=== PATIENT | male | born 1975 | race African-American/Black ===

== ENCOUNTER 2019-08-11 11:18 | Emergency (ER) | payer MEDICAID, SELFPAY ==
[2019-08-11 11:32] VITALS: BP 134/78; PULSE 63; RESP 20; TEMP 37.2; O2SAT 97
--- NOTE | 2019-08-11 11:34 | ED.GENADULT ---
HPI - General Adult General Chief complaint: Upper Respiratory Infection Stated complaint: chills/cough/running nose Time Seen by Provider: 08/11/19 11:34 Source: patient and RN notes reviewed Mode of arrival: ambulatory Limitations: no limitations History of Present Illness HPI narrative: This is a 44 years old male presents to the office for an evaluation of cold symptoms since yesterday. Symptoms include runny nose, sneezing, sore throat, and cold chills. He also reported loose stool, no abdominal pain or vomiting. He did not receive influenza vaccine for the season. He does not smoke. He tried cough drops and NyQuil for his symptoms. Related Data Home Medications Medication Instructions Recorded Confirmed lisinopril 10 mg PO DAILY 08/11/19 08/11/19 Allergies Allergy/AdvReac Type Severity Reaction Status Date / Time No Known Allergies Allergy Verified 08/11/19 11:35 Review of Systems Review of Systems: Narrative: CONSTITUTIONAL: Denies fever. Reports chills/cold ENT: Reports rhinorrhea, congestion, sneezing, sore throat CARDIOVASCULAR: Denies chest pain, palpitation RESPIRATORY: Denies dyspnea, wheezing, cough GASTROINTESTINAL: Denies abdominal pain, nausea, vomiting, diarrhea. GENITOURINARY: Denies urinary symptoms or discharge SKIN: Denies rash MUSCULOSKELETAL: Denies acute back pain NEUROLOGIC: Denies lightheaded PMFSH Comments At time of signature, I agree with nursing past medical, surgical, social and family history. There is no relevant family history pertinent to the presenting complaint. Exam Narrative: Exam Narrative: GENERAL: This is a well-nourished, well-developed patient, in no apparent distress. EYES: Sclera clear/white. Vision is grossly intact. EARS: External ears normal, auditory canals clear and without drainage, TMs normal without perforation. Hearing grossly intact. NOSE: External nose normal with no obvious nasal discharge, nares erythema and edematous THROAT: Mucous membranes moist, posterior pharynx pink with drainage NECK: Neck supple, non-tender without lymphadenopathy, masses or thyromegaly. CARDIOVASCULAR: Regular rate and rhythm without murmurs, gallops, or rubs. RESPIRATORY: Clear to auscultation. Breath sounds equal bilaterally. No wheezes, rales, or rhonchi. GASTROINTESTINAL: Abdomen soft, non-tender, nondistended. Bowel sounds are active. No guarding. SKIN: warm, intact with no suspicious lesions or rash, good texture and turgor. NEURO: awake, alert, and oriented to person, place and time. There were no obvious focal neurologic abnormalities. Steady gait [place] Coma Scale Eye Opening: Spontaneous 4 [place] Coma Scale Motor: Obeys Commands 6 [place] Coma Scale Verbal: Oriented 5 Course Vital Signs Vital signs: Vital Signs Temperature 98.9 F 08/11/19 11:32 Pulse Rate 63 08/11/19 11:32 Respiratory Rate 20 08/11/19 11:32 Blood Pressure 134/78 08/11/19 11:32 Pulse Oximetry 97 08/11/19 11:32 Temperature 98.9 F 08/11/19 11:32 Pulse Rate 63 08/11/19 11:32 Respiratory Rate 20 08/11/19 11:32 Blood Pressure 134/78 08/11/19 11:32 Pulse Oximetry 97 08/11/19 11:32 Medical Decision Making MDM Narrative Medical decision making narrative: Discharge instructions reviewed with patient, as well as provided in writing per nursing staff. The instructions also include specific and strict return/GO TO THE ER as well as f/u information. All questions have been answered, and the patient deny any further questions with discharge and discharge plan. Differential Diagnosis Differential Diagnosis: pneumonia, Allergic Rhinitis, Upper respiratory cough syndrome, Pharyngitis, Sinusitis, Bronchitis, otitis media, viral URI, Asthma/reactive airway disease, influenza Vital Signs Vital Signs: Vital Signs Temperature 98.9 F 08/11/19 11:32 Pulse Rate 63 08/11/19 11:32 Respiratory Rate 20 08/11/19 11:32 Blood Pressure 134/78 08/11/19 11:3
== END 2019-08-11 11:53 | disposition home or self-care (01) ==
PROVIDERS: Emergency Provider Nurse Practitioner
DX: J06.9 Acute upper respiratory infection, unspecified (principal); I10 Essential (primary) hypertension
CPT/HCPCS: 99203; G0463

== ENCOUNTER 2019-11-19 09:17 | Emergency (ER) | payer OTHER, SELFPAY ==
--- NOTE | ~2019-11-19 | US_ITS ---
EXAMINATION:US venous doppler LE BI INDICATION:Bilateral leg pain TECHNIQUE: Multiple grayscale, color flow and Doppler images of the lower extremity deep venous syste ms were obtained and reviewed. COMPARISON:No prior studies for comparison. FINDINGS: The common femoral, superficial femoral and popliteal veins demonstrate normal respiratory variation, augmentation and compressibility. Color flow is also seen within the posterior tibial, pe roneal, greater saphenous and profunda veins. IMPRESSION: 1: No lower extremity deep venous thrombosis. Reviewed, dictated and finalized at location [facility].
[2019-11-19 09:29] VITALS: BP 144/75; PULSE 60; RESP 18; TEMP 36.8; O2SAT 100
[2019-11-19] MEDS: SODIUM CHLORIDE 0.9% IV 1,000 ML 999 ML IV CONT (09:41)
[2019-11-19] MEDS: KETOROLAC 30 MG/ML VIAL (*BKC) IV PUSH (09:41)
[2019-11-19 10:03] LABS: Blood Urea Nitrogen 9 mg/dL (9-20); Calcium 8.5 mg/dL (8.4-10.2); Carbon Dioxide 26 mmol/L (22-30); Chloride 106 mmol/L (98-107); Estimated CRCL calculation 110 ml/min; Estimated Glomerular Filt Rate > 60; Glucose 123 mg/dL (75-110); Magnesium 2.2 mg/dL (1.6-2.3); Potassium 3.8 mmol/L (3.4-5.0); Sodium 136 mmol/L (137-145)
--- NOTE | 2019-11-19 11:25 | ED.LOWEXIN ---
HPI - Extremity Injury (Lower) General Chief Complaint: Extremity Injury, Lower Stated Complaint: leg pain Time Seen by Provider: 11/19/19 09:28 History of Present Illness HPI Narrative: Patient is a 44-year-old male who presents ER with leg cramps. But they have been occurring intermittently over the last 2 months and were much worse last night. He is cramping in the posterior aspect of his right quad in the anterior aspect of his left quadricep. No numbness or tingling in lower extremities. Had outpatient blood work 1 week ago at his PCP that was normal. No chest pain or shortness of breath. Reports he has been staying well-hydrated. Currently works in a warehouse. He does have concerns for blood clots due to the pain but has had no lower extremity swelling and has no previous history of blood clots. Related Data Home Medications Medication Instructions Recorded Confirmed amlodipine 10 mg PO DAILY 11/19/19 ergocalciferol (vitamin D2) 1,250 mcg PO WEEKLY 11/19/19 [Vitamin D2] hydrochlorothiazide 12.5 mg PO DAILY 11/19/19 lisinopril 20 mg PO DAILY 11/19/19 Allergies Allergy/AdvReac Type Severity Reaction Status Date / Time No Known Allergies Allergy Verified 11/19/19 09:46 Review of Systems Review of Systems: All systems reviewed & are unremarkable except as noted in HPI and below Constitutional: Constitutional: Denies chills, Denies fever(s) and Denies weakness ENT: Denies nasal congestion and Denies sore throat Cardiovascular: Cardiovascular: Denies chest pain and Denies radiating jaw, neck or arm pain Respiratory: Respiratory: Denies cough and Denies dyspnea Musculoskeletal: Musculoskeletal: Denies back pain and Reports muscle cramps PMFSH Past Medical History Medical History (Updated 11/19/19 @ 11:34 by Chris Izaguirre MD) Hypertension Surgical History Surgical History (Updated 11/19/19 @ 11:28 by Chris Izaguirre MD) No pertinent past surgical history Social History Social History (Updated 11/19/19 @ 11:28 by Chris Izaguirre MD) Substance use type: marijuana Exam Narrative: Exam Narrative: GENERAL: Well-appearing, well-nourished, and in no acute distress. HEAD: Normocephalic, atraumatic. ENT: Mucous membranes moist. CHEST: Clear to auscultation. No respiratory distress. HEART: Regular rate and rhythm. Normal peripheral pulses. EXTREMITIES: Normal range of motion. No edema. No reproducible tenderness or palpable spasm. SKIN: Warm, dry, no rash. NEURO: Alert and oriented x3. Course Course Emergency Course: Patient hydrated and given Toradol. Informed of results. Discussed if she continues to have lumps in his legs he should talk to his doctor about an MRI to rule out a soft tissue tumor. MRI is not performed through the ER. Discharge home. Vital Signs Vital signs: Vital Signs Temperature 98.2 F 11/19/19 09:29 Pulse Rate 60 11/19/19 09:29 Respiratory Rate 18 11/19/19 09:29 Blood Pressure 144/75 H 11/19/19 09:29 Pulse Oximetry 100 11/19/19 09:29 Temperature 98.2 F 11/19/19 09:29 Pulse Rate 60 11/19/19 09:29 Respiratory Rate 18 11/19/19 09:29 Blood Pressure 144/75 H 11/19/19 09:29 Pulse Oximetry 100 11/19/19 09:29 MDM - Extremity Injury (Lower) Lab Data Result diagrams: 11/19/19 09:43 Labs: Lab Results 11/19/19 Range/Units 09:43 Sodium 136 L (137-145) mmol/L Potassium 3.8 (3.4-5.0) mmol/L Chloride 106 (98-107) mmol/L Carbon Dioxide 26 (22-30) mmol/L BUN 9 (9-20) mg/dL Creatinine 0.90 (0.7-1.3) mg/dL Estim Creat Clear Calc 110 ml/min Estimated GFR > 60 (59 - ) Glucose 123 H (75-110) mg/dL Calcium 8.5 (8.4-10.2) mg/dL Magnesium 2.2 (1.6-2.3) mg/dL Imaging Data Radiologist's impression: ITS Impressions Venous Doppler Study 11/19/19 10:40 IMPRESSION: 1: No lower extremity deep venous thrombosis. Discharge Plan Discharge Cli
== END 2019-11-19 11:50 | disposition home or self-care (01) ==
PROVIDERS: Emergency Provider Emergency Medicine; PCP Family Medicine
DX: R25.2 Cramp and spasm (principal); I10 Essential (primary) hypertension
CPT/HCPCS: 36415; 80048; 83735; 93970; 96361; 96374; 99284; J1885; J7030

== ENCOUNTER 2020-11-14 16:26 | Outpatient (CLI) | payer OTHER, SELFPAY ==
--- NOTE | ~2020-11-14 | US_ITS ---
EXAMINATION: US carotid duplex BI DATE: 11/14/2020 17:06 INDICATION: Carotid bruit TECHNIQUE: Grayscale, color Doppler, and pulsed Doppler images of the cervical carotid arteries were obtained. The degree of vessel stenosis is placed in one of the following categories: normal, <50%, 5 0-69%, >=70% but less than near-occlusion, near-occlusion, or total occlusion. Note that percent sten osis relative to normal distal artery lumen diameter is indirectly measured from velocity measurement s as described by Stewart, et al. Radiology 2003; 229:340-346. COMPARISON: None. FINDINGS: RIGHT: The right common carotid artery (CCA) peak systolic velocity (PSV) is 115.2 cm/s. The right internal carotid artery (ICA) PSV is 103.0 cm/s. The right ICA end-diastolic velocity (EDV) is 22.5 cm/s. The right ICA/CCA PSV ratio is 0.9. Grayscale and color Doppler images yield an estimate of less than 50% diameter reduction from plaque in the ICA. The external carotid artery (ECA) PSV is 90.2 cm/s. There is antegrade flow in the right vertebral artery. LEFT: The left CCA PSV is 164.5 cm/s. The left ICA PSV is 103.5 cm/s. The left ICA EDV is 22.8 cm/s. The le ft ICA/CCA PSV ratio is 0.6. Grayscale and color Doppler images yield an estimate of less than 50% di ameter reduction from plaque in the ICA. The ECA PSV is 48.9 cm/s. There is antegrade flow in the lef t vertebral artery. IMPRESSION: 1. Less than 50% stenosis in the right internal carotid artery. 2. Less than 50% stenosis in the left internal carotid artery. Reviewed, dictated and finalized at [facility]. Reviewed, dictated and finalized at location [facility].
== END 2020-11-14 16:27 | disposition home or self-care (01) ==
LOC: ANHIMG 16:32
PROVIDERS: PCP Family Medicine; Visit Provider Family Medicine
DX: R09.89 Other specified symptoms and signs involving the circulatory and respiratory systems (principal); I65.23 Occlusion and stenosis of bilateral carotid arteries
CPT/HCPCS: 93880

== ENCOUNTER 2023-04-11 18:37 | Emergency (ER) | payer BC, SELFPAY ==
[2023-04-11] VITALS (24 sets, daily range): BP systolic 119–180; BP diastolic 62–101; PULSE 51–82; RESP 13–21; O2SAT 85–100
--- NOTE | 2023-04-11 18:46 | ECG_ITS ---
Measurements Intervals [place] Rate: 73 P: 75 ME: 154 QRS: 71 QRSD: 106 T: 60 QT: 423 QTc: 468 Interpretive Statements SINUS RHYTHM NORMAL ECG NO PREVIOUS ECG AVAILABLE FOR COMPARISON Electronically Signed On 04-12-2023 6:19:43 [employer]ION[employer] MANAGER by Leo Estrada D.O.
[2023-04-11 18:55] LABS: Basophils Percent Auto 0.3 % (0.2-1.2); Eosinophils Absolute Auto 0.2 K/mm3 (0-0.3); Eosinophils Percent Auto 2.2 % (0-4.4); Hematocrit 42.4 % (42.0-52.0); Immature Granulocyte Percent A 1.4 % (0-0.5); Lymphocytes Absolute Auto 2.62 K/mm3 (0.9-3.2); Lymphocytes Percent Auto 36.6 % (18.3-44.2); Mean Corpuscular HGB Conc 30.7 g/dl (32-36); Mean Corpuscular Hemoglobin 26.1 pg (26-34); Mean Corpuscular Volume 85.1 fl (80-100); Mean Platelet Volume 8.6 fl (7.4-10.4); Monocytes Absolute Auto 0.6 K/mm3 (0.1-0.6); Monocytes Percent Auto 8.7 % (2.6-8.5); Neutrophils Absolute Auto 3.6 K/mm3 (1.3-6.7); Neutrophils Percent Auto 50.8 % (45.5-73.1); Platelet Count Result 313 k/mm3 (150-375); Red Blood Count 4.98 M/mm3 (4.6-6.20); Red Cell Distribution Width 13.9 % (11.5-14.5); White Blood Count 7.2 K/mm3 (4.5-10.0)
--- NOTE | 2023-04-11 18:59 | ED.AMS ---
HPI - Altered Mental Status General Chief Complaint: Altered Mental Status Stated Complaint: alteed mental status Time Seen by Provider: 04/11/23 18:56 Source: EMS Mode of arrival: EMS Limitations: clinical condition History of Present Illness HPI narrative: 48 years old -[place] male came to the emergency room by ambulance because found unresponsive on the porch by his . Last time was seen okay 10 minutes prior to that. Patient been drinking, using cocaine, marijuana and x pills. After 1 dose of Narcan patient became awake, currently feeling dizzy and tired, is awake, alert oriented x4. Related Data Home Medications Medication Instructions Recorded Confirmed amlodipine 10 mg tablet 10 mg PO DAILY 11/19/19 ergocalciferol (vitamin D2) 1,250 1,250 mcg PO WEEKLY 11/19/19 mcg (50,000 unit) capsule (Vitamin D2) hydrochlorothiazide 12.5 mg tablet 12.5 mg PO DAILY 11/19/19 lisinopril 20 mg tablet 20 mg PO DAILY 11/19/19 Allergies Allergy/AdvReac Type Severity Reaction Status Date / Time No Known Allergies Allergy Verified 04/11/23 18:47 Review of Systems Review of Systems: All systems reviewed & are unremarkable except as noted in HPI and below PMFSH Past Medical History Medical History Hypertension Surgical History Surgical History No pertinent past surgical history Social History Social History Substance use type: marijuana Exam Narrative: General appearance: Well-developed, well-nourished Skin: Normal color Head: Normocephalic, nontraumatic Eyes: Clear conjunctiva ENT: Oropharynx normal, ears normal, nose normal Neck: Supple, nontender Chest and respiratory: Airway patent, no respiratory distress, no accessory muscle use Heart: Regular rate/rhythm Abdomen: Soft, nontender, no organomegaly, quiet bowel sounds Vascular: Normal peripheral pulses, normal capillary refill. Musculoskeletal: Normal range of motion, nontender back Neurologic: Alert and oriented ?3, [employer] DIES is normal as tested, no gross motor deficit Course Vital Signs Vital signs: Vital Signs Pulse Rate 82 04/11/23 18:41 Respiratory Rate 18 04/11/23 18:41 Blood Pressure 180/101 H 04/11/23 18:41 Pulse Oximetry 100 04/11/23 18:41 Oxygen Delivery Room Air 04/11/23 18:41 Pulse Rate 55 L 04/11/23 20:45 Respiratory Rate 14 04/11/23 20:45 Blood Pressure 119/62 04/11/23 20:31 Pulse Oximetry 98 04/11/23 20:45 Oxygen Delivery Room Air 04/11/23 18:41 MDM - Altered Mental Status MDM Narrative Medical decision making narrative: Patient presents with unresponsiveness, resolved after Narcan. Vital signs on arrival showed blood pressure 180/101 Physical examination as above, differential diagnosis polysubstance abuse disorder. Work-up today showed normal WBC, normal coag, blood glucose 215, slight elevation of liver enzyme was unremarkable urine analysis, urine drug screen came back positive for cocaine and marijuana. Patient received significant numerous doses of Narcan in the ED, with significant improvement, still slightly sleepy, his girlfriend reported that patient been partying all night long and did not sleep Differential Diagnosis Differential diagnosis: Likely alcoholic intoxication, altered mental status and other (Polysubstance abuse) Medical Records Attestation: I reviewed the patient's medical records. Lab Data Attestation: I reviewed the patient's lab results. 04/11/23 18:47 04/11/23 18:47 Labs: Lab Results
[2023-04-11 19:04] LABS: Alanine Aminotransferase 54 U/L (6-50); Albumin Level 4.1 g/dL (3.5-5.1); Alkaline Phosphatase 49 U/L (38-126); Anion Gap 14 mmol/L (8-16); Aspartate Amino Transferase 64 U/L (17-59); Bilirubin,Total 0.6 mg/dL (0.2-1.3); Blood Urea Nitrogen 7 mg/dL (9-20); Calcium 8.3 mg/dL (8.4-10.2); Carbon Dioxide 23 mmol/L (22-30); Chloride 102 mmol/L (98-107); Estimated Glomerular Filt Rate > 60; Glucose 215 mg/dL (65-110); Potassium 3.8 mmol/L (3.4-5.0); Sodium 139 mmol/L (137-145)
[2023-04-11 19:07] LABS: Partial Thromboplastin Time 25.3 SECONDS (22.3-36.8); Prothrombin Time 13.5 Seconds (11.1-14.7)
[2023-04-11] MEDS: NALOXONE HCL 0.4 MG/ML VIAL ×3 (19:19→20:31)
[2023-04-11 19:23] LABS: Appearance Urine Clear (Clear); Bacteria Urine None Seen /hpf; Bilirubin Urine Negative (Negative); Blood Urine Trace (Negative); Color Urine Yellow (Yellow); Glucose Urine UA 2+ mg/dL (Negative); Ketones Urine Negative (Negative); Leukocyte Esterase Ur Negative LEU/UL (Negative); Nitrate Urine Negative (Negative); Non Pathogenic Casts 0-2; Protein Urine 2+ mg/dL (Negative); RBC Urine 0-2 /hpf (0-2); Specific Grav Ur 1.014 (1.001-1.035); Squamous Epithelial Cell Urine None seen /hpf (Few); Urobilinogen Urine 0.2 mg/dL (<2.0); WBC Urine 0-5 /hpf; pH Urine 6.5 (5.0-9.0)
--- NOTE | 2023-04-11 19:30 | PC.NURSE ---
VO for narcan 0.4mg q 2 min up to 2mg for low O2 sats and respirations from Dr Stuart. Attempted to order in [employer], but unable to scan second dose given at 1930.
[2023-04-11 19:34] LABS: Amphetamine Screen Urine Negative (Negative); Barbiturate Screen Urine Negative (Negative); Benzodiazepines Screen Urine Negative (Negative); Cannabinoid Screen Urine Positive (Negative); Cocaine Screen Urine Positive (Negative); Methadone Screen Urine Negative (Negative); Opiate Screen Urine Negative (Negative); Phencyclidine Screen Urine Negative (Negative)
[2023-04-11] MEDS: NALOXONE HCL 0.4 MG/ML VIAL IV PUSH (19:50)
[2023-04-11 20:03] LABS: Add Urine Microscopic? YES
[2023-04-11] MEDS: ONDANSETRON INJ 4 MG/2 ML VIAL (21:40)
[2023-04-11] MEDS: ONDANSETRON INJ 4 MG/2 ML VIAL IV PUSH (21:42)
--- NOTE | 2023-04-11 21:42 | PC.NURSE ---
Pt started vomiting. VO for zofran obtained. Dr Stuart still ok with discharge post zofran. Pt agrees with plan.
== END 2023-04-11 21:50 | disposition home or self-care (01) ==
PROVIDERS: Emergency Provider Emergency Medicine; PCP Family Medicine
DX: F14.10 Cocaine abuse, uncomplicated (principal); F12.10 Cannabis abuse, uncomplicated; I10 Essential (primary) hypertension
CPT/HCPCS: 36415; 80053; 80307; 81001; 85025; 85610; 85730; 93005; 96374; 96375; 96376; 99284; J2310; J2405